=== PATIENT | male | born 1970 | race Two or more races ===

== ENCOUNTER 2024-05-12 06:03 | Inpatient (IN) | payer OTHER ==
[~2024-05-12] VITALS: Ht 152.4 cm; Wt 90.9 kg
[2024-05-12] VITALS (12 sets, daily range): BP systolic 96–160; BP diastolic 68–103; PULSE 101–119; RESP 24–36; TEMP 101.4–102; O2SAT 95–100
[2024-05-12] MEDS: AMIODARONE BOLUS KIT 100 ML IV ONE ×2 (06:32)
[2024-05-12] MEDS: NITROGLYCERIN 2% OINT 1GM PKG TD STA (06:36)
[2024-05-12] MEDS: ASPirin 81 mg TAB PO ONE (06:37)
[2024-05-12 06:51] LABS: Basophils # (auto) 0 10 ^3/uL (0-0.2); Basophils % (auto) 0.1 % (0.0-2.0); Eosinophils # (auto) 0.1 10 ^3/uL (0-0.8); Eosinophils % (auto) 0.6 % (0.0-7.0); Hematocrit 45.1 % (41.0-53.0); Hemoglobin 14.9 g/dL (13.5-17.5); Lymphocytes # (auto) 0.7 10 ^3/uL (0.4-5.4); Lymphocytes % (auto) 3.1 % (10.0-50.0); Mean Corpuscular Hemoglobin 28.6 pg (28.0-32.0); Mean Corpuscular Hgb Conc. 33.1 g/dL (32.0-36.0); Mean Corpuscular Volume 86.5 fL (80.0-100.0); Monocytes % (auto) 4.3 % (0.0-12.0); Neutrophils # (auto) 20.7 10 ^3/uL (1.6-8.6); Neutrophils % (auto) 91.9 % (37.0-80.0); Red Blood Cells 5.22 10^6/uL (4.5-5.90); Red Cell Distribution Width 13.8 % (11.8-14.3); White Blood Cell 22.5 10^3/uL (4.4-10.8)
[2024-05-12 07:05] LABS: INR 1.1 (0.9-1.15); Partial Thromboplastin Time 27.9 SEC (24.5-34.5); Prothrombin Time 11.6 sec (9.3-11.8)
[2024-05-12 07:07] LABS: Alanine Aminotransferase 18 U/L (7-40); Albumin 3.9 g/dL (3.2-4.8); Alkaline Phosphatase 139 U/L (46-116); Anion Gap 16 (5-15); Aspartate Aminotransferase 11 U/L (13-40); BUN/Creatinine Ratio 16.7 (10.0-20.0); Blood Urea Nitrogen 16 mg/dL (9-23); Calcium 10.3 mg/dL (8.7-10.4); Carbon Dioxide 17 mmol/L (20-30); Chloride 97 mmol/L (98-107); Potassium 4.3 mmol/L (3.5-5.1); Sodium 130 mmol/L (136-145); Total Protein 7.3 g/dL (5.7-8.2)
[2024-05-12 07:35] LABS: Glucose 421 mg/dL (74-106)
[2024-05-12] MEDS: AMIODARONE 450mg/250ml AE 250 ML IV SCH ×2 (07:45→13:00)
[2024-05-12] MEDS: ACETAMINOPHEN 325 MG TAB PO ONE (07:55)
[2024-05-12] MEDS: LACTATED RINGER'S 1,000 ML IV ONE (08:00)
[2024-05-12 08:19] LABS: Base Excess -8.7 mmol/L (-2.0-2.0)
[2024-05-12] MEDS: MORPHINE SULFATE INJ 2 MG/ml SYRG IV ONE ×2 (08:24→11:19)
[2024-05-12] MEDS: ONDANSETRON HCL 4 MG/2 ML VIAL IV ONE (08:24)
[2024-05-12] MEDS: InsuLIN REG 1unit/0.01ml Soln (100units/ml) IV ONE (08:44)
[2024-05-12 08:54] LABS: Magnesium 2.1 mg/dL (1.6-2.6)
[2024-05-12] MEDS: SODIUM CHLORIDE 0.9% 1,000 ML IV SCH ×3 (09:20→19:30)
[2024-05-12] MEDS: INSULIN DRIP 100 UNIT/100ML 100 ML IV SCH ×2 (09:20→12:48)
[2024-05-12] MEDS: SODIUM CHLORIDE 0.9% 1,000 ML IV ONE (11:19)
[2024-05-12] MEDS ORDERED: NITROGLYCERIN 0.4 MG SL TAB SL PRN ×2 (11:30)
[2024-05-12] MEDS ORDERED: ACETAMINOPHEN 325 MG TAB PO PRN (11:30)
[2024-05-12] MEDS ORDERED: MORPHINE SULFATE 4 MG/ML SYR/VIAL IV PRN (11:30)
[2024-05-12] MEDS ORDERED: DEXTROSE (50%) 50ML SYRG IV PRN (11:30)
[2024-05-12] MEDS: IOHEXOL 350 MG/ML 100ML IJ ONE (11:52)
[2024-05-12 12:13] LABS: Potassium 3.4 mmol/L (3.5-5.1); Sodium 137 mmol/L (136-145)
[2024-05-12 12:14] LABS: Anion Gap 11 (5-15); Carbon Dioxide 19 mmol/L (20-30)
[2024-05-12 12:19] LABS: BUN/Creatinine Ratio 30.6 (10.0-20.0); Blood Urea Nitrogen 19 mg/dL (9-23); Lipase 16 U/L (12-53)
[2024-05-12 12:21] LABS: Phosphorus 2.3 mg/dL (2.4-5.1)
[2024-05-12 12:29] LABS: Chloride 107 mmol/L (98-107); Glucose 278 mg/dL (74-106)
[2024-05-12 12:40] LABS: Lactic Acid w/Reflex 2.8 mmol/L (0.4-2.0)
[2024-05-12] MEDS: ACCU-CHEK COMFORT CURVE STRIP VI SCH (12:48)
[2024-05-12] MEDS: INSULIN LANTUS (GLARGINE) 1 /0.01ml (100units/ml) SC ONE (13:03)
[2024-05-12] MEDS: MORPHINE SULFATE INJ 2 MG/ml SYRG IV PRN (15:23)
[2024-05-12] MEDS: ONDANSETRON HCL 4 MG/2 ML VIAL IV PRN (15:23)
[2024-05-12 15:45] LABS: Urine Bacteria None Seen /hpf (None Seen)
[2024-05-12] MEDS: PIPERACILLIN-TAZOB 3.375GM 100 ML IV ONE (15:53)
[2024-05-12 16:09] LABS: Urine Blood Negative /uL (Negative); Urine Clarity Clear (Clear); Urine Color Light-Yellow (Yellow); Urine Protein, UAD 1+ (Negative); Urine Specific Gravity 1.039 (1.001-1.035); Urine Urobilinogen Normal (Negative); Urine WBC <1 /hpf (0 - 3); Urine pH 5.5 (5.0-9.0)
[2024-05-12 16:20] LABS: Amphetamine Screen, Urine Neg (NEGATIVE); Barbiturate Scree,Urine Neg (NEGATIVE); Benzodiazephine Screen, Urine Neg (NEGATIVE); Cocaine Screen, Urine Neg (NEGATIVE); Opiate Scree,Urine Neg (NEGATIVE)
[2024-05-12 16:22] LABS: Cannabinoid Screen, Urine Neg (NEGATIVE); Phencyclidine Screen, Urine Neg (NEGATIVE)
[2024-05-12] MEDS: MIDAZOLAM HCL 5 MG/ML-1ML VIAL IV ONE (17:18)
[2024-05-12] MEDS: LIDOCAINE HCL 100 MG/5ML (2%) SYRG INJ IV ONE (17:22)
[2024-05-12] MEDS: MIDAZOLAM HCL 5 MG/ML-1ML VIAL ONE (17:34)
[2024-05-12] MEDS: POTASSIUM CHL 20MEQ/100ML 100 ML IV SCH ×2 (17:58→18:11)
[2024-05-12] MEDS: POTASSIUM CHL 20MEQ/100ML 100 ML IV ONE (17:59)
[2024-05-12] MEDS ORDERED: PIPERACILLIN-TAZOB 3.375GM 100 ML IV SCH (18:00)
[2024-05-12] MEDS: METOPROLOL TARTRATE 1MG/1ML-5ML VIAL IV ONE (18:11)
[2024-05-12] MEDS: LIDOCAINE 4MG/ML IV SOLN 500 ML IV SCH (18:19)
[2024-05-12] MEDS: SUCCINYLCHOLINE CHLORIDE 20 MG/ML 10ML VIAL IV ONE ×2 (18:23→18:27)
[2024-05-12] MEDS: ETOMIDATE (2MG/ML) 20ML VIAL IV ONE ×2 (18:23→18:27)
[2024-05-12] MEDS: PROPOFOL 100 ML IV ONE (18:39)
[2024-05-12] MEDS: PROPOFOL 100 ML IV SCH (18:42)
[2024-05-12] MEDS ORDERED: VANCOMYCIN PER PHARMACY 0 MG IV SCH (18:45)
[2024-05-12] MEDS ORDERED: hydrALAZINE HCL 20 MG/ML VL IV PRN (19:00)
[2024-05-12 19:12] LABS: Chloride 107 mmol/L (98-107); Potassium 3.5 mmol/L (3.5-5.1); Sodium 136 mmol/L (136-145)
[2024-05-12 19:13] LABS: Anion Gap 8 (5-15); Carbon Dioxide 21 mmol/L (20-30)
[2024-05-12 19:14] LABS: Calcium 9.3 mg/dL (8.5-10.1)
[2024-05-12 19:18] LABS: BUN/Creatinine Ratio 23.8 (10.0-20.0); Blood Urea Nitrogen 15 mg/dL (9-23); Glucose 248 mg/dL (74-106)
[2024-05-12 19:56] LABS: Base Excess -5.7 mmol/L (-2.0-2.0)
[2024-05-12] MEDS: ACETAMINOPHEN 650 mg PER 20.3 mL UD GT PRN (20:01)
[2024-05-12 20:10] LABS: Triglycerides 110 mg/dL (< 150)
[2024-05-12 20:11] LABS: LDL Cholesterol 37 mg/dL (< 100)
[2024-05-12 20:12] LABS: Cholesterol 95 mg/dL (< 200); HDL Cholesterol 33 mg/dL (40-59)
[2024-05-12 20:49] LABS: Lactic Acid w/Reflex 2.3 mmol/L (0.4-2.0)
[2024-05-12] MEDS: VANCOMYCIN 1GM/200ML 200 ML IV ONE (21:33)
[2024-05-12] MEDS ORDERED: ATORVASTATIN 20 MG TAB PO SCH (22:00)
[2024-05-12 23:32] LABS: Chloride 109 mmol/L (98-107); Potassium 3.7 mmol/L (3.5-5.1); Sodium 136 mmol/L (136-145)
[2024-05-12 23:33] LABS: Anion Gap 7 (5-15); Carbon Dioxide 20 mmol/L (20-30)
[2024-05-12 23:38] LABS: BUN/Creatinine Ratio 22.4 (10.0-20.0); Blood Urea Nitrogen 15 mg/dL (9-23); Glucose 198 mg/dL (74-106)
[2024-05-13] VITALS (118 sets, daily range): BP systolic 84–123; BP diastolic 54–91; PULSE 78–108; RESP 16–34; TEMP 98.6–102; O2SAT 94–100
[2024-05-13] MEDS: IBUPROFEN 100MG/5ML ORAL SUSP 100 MG/5 ML UD GT PRN (00:17)
[2024-05-13] MEDS: PIPERACILLIN-TAZOB 3.375GM 100 ML IV SCH ×2 (00:58→21:16)
[2024-05-13] MEDS: MIDAZOLAM DRIP 50 mg/50mL 50 ML IV SCH (02:15)
[2024-05-13 04:28] LABS: Chloride 108 mmol/L (98-107); Potassium 3.8 mmol/L (3.5-5.1); Sodium 136 mmol/L (136-145)
[2024-05-13 04:29] LABS: Anion Gap 6 (5-15); Carbon Dioxide 22 mmol/L (20-30)
[2024-05-13 04:34] LABS: BUN/Creatinine Ratio 28.1 (10.0-20.0); Blood Urea Nitrogen 18 mg/dL (9-23); Glucose 228 mg/dL (74-106)
[2024-05-13 04:51] LABS: Triglycerides 91 mg/dL (< 150)
[2024-05-13 05:02] LABS: Cholesterol 77 mg/dL (< 200); HDL Cholesterol 30 mg/dL (40-59); LDL Cholesterol 27 mg/dL (< 100)
[2024-05-13] MEDS: ENOXAPARIN SOD 80 MG/0.8ML SYRINGE SC SCH (08:00)
[2024-05-13] MEDS ORDERED: DEXTROSE (50%) 50ML SYRG IV PRN (08:30)
[2024-05-13] MEDS: NOREPINEPHRINE 8 MG/250ML KIT 250 ML IV SCH (09:23)
[2024-05-13] MEDS: POTASSIUM CHL 20MEQ/100ML 100 ML IV SCH (09:32)
[2024-05-13 09:33] LABS: Basophils # (auto) 0 10 ^3/uL (0-0.2); Eosinophils # (auto) 0 10 ^3/uL (0-0.8); Eosinophils % (auto) 0.2 % (0.0-7.0); Hematocrit 38.1 % (41.0-53.0); Lymphocytes # (auto) 0.6 10 ^3/uL (0.4-5.4); Lymphocytes % (auto) 6.4 % (10.0-50.0); Mean Corpuscular Hemoglobin 29.4 pg (28.0-32.0); Mean Corpuscular Hgb Conc. 34.1 g/dL (32.0-36.0); Mean Corpuscular Volume 86.1 fL (80.0-100.0); Monocytes # (auto) 0.6 10 ^3/uL (0-1.3); Monocytes % (auto) 6.3 % (0.0-12.0); Neutrophils # (auto) 8.1 10 ^3/uL (1.6-8.6); Neutrophils % (auto) 87.1 % (37.0-80.0); Nucleated Red Blood Cells % 0.5 %; Red Blood Cells 4.42 10^6/uL (4.5-5.90); Red Cell Distribution Width 13.9 % (11.8-14.3); White Blood Cell 9.3 10^3/uL (4.4-10.8)
[2024-05-13] MEDS: DOCUSATE SOD 100 MG CAP PO SCH (10:00)
[2024-05-13] MEDS ORDERED: INSULIN LANTUS (GLARGINE) 1 /0.01ml (100units/ml) SC SCH (10:00)
[2024-05-13] MEDS: ACCU-CHEK COMFORT CURVE STRIP VI SCH ×3 (11:29→20:00)
[2024-05-13] MEDS: InsuLIN REG 1unit/0.01ml Soln (100units/ml) SC SCH ×3 (11:34→20:00)
[2024-05-13 11:36] LABS: Base Excess -6.6 mmol/L (-2.0-2.0)
[2024-05-13] MEDS: HEPARIN SODIUM (PORCINE) 5000 UNITS/ML 1ML VIAL ONE (12:13)
[2024-05-13] MEDS: VERAPAMIL 2.5MG/ML INJ 2ML VIAL IV ONE (12:13)
[2024-05-13] MEDS: ANGIOMAX 250 MG VIAL IV ONE (12:13)
[2024-05-13] MEDS: LIDOCAINE 2%HCL (LOCAL ANESTH.) INJ 20ML MDV ONE (12:14)
[2024-05-13] MEDS: SODIUM CHL 0.9% 0 ML ONE (12:14)
[2024-05-13] MEDS: IODIXANOL 320MG/ML 100ML BTL IV ONE (12:27)
[2024-05-13] MEDS: ASPirin 81 mg TAB PO SCH (13:00)
[2024-05-13] MEDS: VANCOMYCIN 1GM/200ML 200 ML IV ONE (13:00)
[2024-05-13] MEDS ORDERED: ACCU-CHEK COMFORT CURVE STRIP VI SCH (14:00)
[2024-05-13] MEDS ORDERED: VANCOMYCIN 1GM/200ML 200 ML IV SCH (14:00)
[2024-05-13] MEDS ORDERED: InsuLIN REG 1unit/0.01ml Soln (100units/ml) SC SCH (14:00)
[2024-05-13] MEDS: SODIUM CHLORIDE 0.9% 1,000 ML IV SCH ×2 (14:18→17:15)
[2024-05-13] MEDS: ENOXAPARIN SOD 30 MG/0.3 ML SYRINGE SC ONE (14:44)
[2024-05-13] MEDS: INSULIN LANTUS (GLARGINE) 1 /0.01ml (100units/ml) SC ONE (14:46)
[2024-05-13 19:06] LABS: Urine Bacteria None Seen /hpf (None Seen); Urine Blood 1+ /uL (Negative); Urine Clarity Clear (Clear); Urine Color Yellow (Yellow); Urine Protein, UAD 1+ (Negative); Urine Urobilinogen 3 mg/dL (Negative); Urine WBC 5 /hpf (0 - 3); Urine pH 6.5 (5.0-9.0)
[2024-05-13 19:07] LABS: Urine Specific Gravity > 1.050 (1.001-1.035)
[2024-05-13] MEDS: PANTOPRAZOLE 40 MG/10 ML VIAL INJ IV ONE (21:16)
[2024-05-13] MEDS: POTASSIUM CHL 20MEQ/100ML 100 ML IV ONE (21:43)
[2024-05-13] MEDS: VANCOMYCIN 1GM/200ML 200 ML IV SCH (23:19)
[2024-05-13] MEDS: fentaNYL Drip 2500mCg/250mlNS 250 ML IV SCH (23:30)
[2024-05-14] VITALS (109 sets, daily range): BP systolic 95–135; BP diastolic 42–92; PULSE 78–96; RESP 16–31; TEMP 98.9–101.3; O2SAT 95–99
[2024-05-14 03:35] LABS: Basophils # (auto) 0 10 ^3/uL (0-0.2); Basophils % (auto) 0.2 % (0.0-2.0); Eosinophils # (auto) 0 10 ^3/uL (0-0.8); Eosinophils % (auto) 0.2 % (0.0-7.0); Hemoglobin 12.5 g/dL (13.5-17.5); Lymphocytes % (auto) 8.6 % (10.0-50.0); Mean Corpuscular Hemoglobin 28.9 pg (28.0-32.0); Mean Corpuscular Hgb Conc. 33.7 g/dL (32.0-36.0); Mean Corpuscular Volume 85.9 fL (80.0-100.0); Monocytes # (auto) 0.6 10 ^3/uL (0-1.3); Monocytes % (auto) 5.4 % (0.0-12.0); Neutrophils # (auto) 9.6 10 ^3/uL (1.6-8.6); Neutrophils % (auto) 85.6 % (37.0-80.0); Nucleated Red Blood Cells % 0.4 %; Red Cell Distribution Width 14.2 % (11.8-14.3); White Blood Cell 11.2 10^3/uL (4.4-10.8)
[2024-05-14 03:54] LABS: Alanine Aminotransferase 18 U/L (7-40); Albumin 3.1 g/dL (3.2-4.8); Alkaline Phosphatase 166 U/L (46-116); Anion Gap 8 (5-15); Aspartate Aminotransferase 22 U/L (13-40); BUN/Creatinine Ratio 31.6 (10.0-20.0); Bilirubin, Total 0.5 mg/dL (0.2-1.0); Blood Urea Nitrogen 18 mg/dL (9-23); Calcium 8.9 mg/dL (8.7-10.4); Carbon Dioxide 19 mmol/L (20-30); Chloride 111 mmol/L (98-107); Glucose 186 mg/dL (74-106); Magnesium 2.2 mg/dL (1.6-2.6); Potassium 3.9 mmol/L (3.5-5.1); Sodium 138 mmol/L (136-145)
[2024-05-14 03:55] LABS: Total Protein 5.7 g/dL (5.7-8.2)
[2024-05-14] MEDS: INSULIN LANTUS (GLARGINE) 1 /0.01ml (100units/ml) SC SCH (05:45)
[2024-05-14 07:14] LABS: Base Excess -5.5 mmol/L (-2.0-2.0)
[2024-05-14] MEDS: PANTOPRAZOLE 40 MG/10 ML VIAL INJ IV SCH (11:28)
[2024-05-14] MEDS: ENOXAPARIN SOD 40 MG/0.4 ML SYRINGE SC SCH (11:29)
[2024-05-14] MEDS: DOCUSATE ORAL LIQUID 100 MG/10 ML UD GT SCH (11:29)
[2024-05-14] MEDS ORDERED: LIDOCAINE HCL 100 MG/5ML (2%) SYRG INJ IV ONE (12:22)
[2024-05-14] MEDS ORDERED: FLECAINIDE ACETATE 50 MG TAB PO ONE (12:30)
[2024-05-14] MEDS ORDERED: AMIODARONE HCL 200 MG TAB PO ONE (14:45)
[2024-05-14] MEDS: AMIODARONE HCL 200 MG TAB PO ONE (14:49)
[2024-05-14] MEDS ORDERED: Glucerna 1.2 Cal 1Liter BOTTLE GT SCH (18:00)
[2024-05-14] MEDS: AMIODARONE HCL 200 MG TAB PO SCH (21:06)
[2024-05-14] MEDS ORDERED: FLECAINIDE ACETATE 50 MG TAB PO SCH (22:00)
[2024-05-15] VITALS (114 sets, daily range): BP systolic 86–115; BP diastolic 59–81; PULSE 70–97; RESP 6–23; TEMP 70.5–100.2; O2SAT 93–100
[2024-05-15 04:06] LABS: Basophils # (auto) 0 10 ^3/uL (0-0.2); Basophils % (auto) 0.1 % (0.0-2.0); Eosinophils # (auto) 0 10 ^3/uL (0-0.8); Eosinophils % (auto) 0.3 % (0.0-7.0); Hematocrit 37.6 % (41.0-53.0); Hemoglobin 12.6 g/dL (13.5-17.5); Lymphocytes # (auto) 0.9 10 ^3/uL (0.4-5.4); Lymphocytes % (auto) 6.2 % (10.0-50.0); Mean Corpuscular Hemoglobin 28.9 pg (28.0-32.0); Mean Corpuscular Hgb Conc. 33.6 g/dL (32.0-36.0); Mean Corpuscular Volume 86.1 fL (80.0-100.0); Monocytes # (auto) 0.8 10 ^3/uL (0-1.3); Monocytes % (auto) 5.6 % (0.0-12.0); Neutrophils % (auto) 87.8 % (37.0-80.0); Nucleated Red Blood Cells % 0.2 %; Red Blood Cells 4.37 10^6/uL (4.5-5.90); Red Cell Distribution Width 14.5 % (11.8-14.3); White Blood Cell 13.6 10^3/uL (4.4-10.8)
[2024-05-15 04:20] LABS: Alanine Aminotransferase 18 U/L (7-40); Alkaline Phosphatase 244 U/L (46-116); Anion Gap 7 (5-15); Aspartate Aminotransferase 23 U/L (13-40); BUN/Creatinine Ratio 34.8 (10.0-20.0); Bilirubin, Total 0.6 mg/dL (0.2-1.0); Blood Urea Nitrogen 16 mg/dL (9-23); Calcium 8.8 mg/dL (8.7-10.4); Carbon Dioxide 21 mmol/L (20-30); Chloride 111 mmol/L (98-107); Glucose 159 mg/dL (74-106); Magnesium 2.1 mg/dL (1.6-2.6); Potassium 3.9 mmol/L (3.5-5.1); Sodium 139 mmol/L (136-145); Total Protein 5.8 g/dL (5.7-8.2)
[2024-05-15 07:40] LABS: Base Excess -6.1 mmol/L (-2.0-2.0)
[2024-05-15] MEDS ORDERED: LIDOCAINE 2%HCL (LOCAL ANESTH.) INJ 20ML MDV ONE (11:27)
[2024-05-15] MEDS ORDERED: LIDOCAINE 2% JELLY 11ml (GLYDO) ONE (11:27)
[2024-05-15] MEDS ORDERED: MIDAZOLAM HCL 5 MG/ML-1ML VIAL ONE (11:27)
[2024-05-15] MEDS ORDERED: EPINEPHrine HCL 1 MG/1 ML AMP ONE (11:27)
[2024-05-15] MEDS ORDERED: fentaNYL CITRATE 100 MCG/2 ML VL ONE (11:28)
[2024-05-15] MEDS ORDERED: NALOXONE HCL 0.4 MG/ML VIAL ONE (11:28)
[2024-05-15] MEDS ORDERED: FLUMAZENIL 0.1 MG/ML INJ 10ML MDV IV ONE (11:28)
[2024-05-15] MEDS: VANCOMYCIN 1GM/200ML 200 ML IV SCH (14:16)
[2024-05-15] MEDS: MICAFUNGIN SODIUM 100 MG in SODIUM CHL 0.9% 100 ML IV ONE (19:00)
[2024-05-16] VITALS (113 sets, daily range): BP systolic 89–168; BP diastolic 37–105; PULSE 67–120; RESP 14–30; TEMP 98.8–100.6; O2SAT 94–100
[2024-05-16 03:42] LABS: Basophils # (auto) 0 10 ^3/uL (0-0.2); Basophils % (auto) 0.1 % (0.0-2.0); Eosinophils # (auto) 0.2 10 ^3/uL (0-0.8); Eosinophils % (auto) 1.1 % (0.0-7.0); Hematocrit 36.5 % (41.0-53.0); Hemoglobin 12.2 g/dL (13.5-17.5); Lymphocytes # (auto) 0.9 10 ^3/uL (0.4-5.4); Lymphocytes % (auto) 6.4 % (10.0-50.0); Mean Corpuscular Hemoglobin 28.8 pg (28.0-32.0); Mean Corpuscular Hgb Conc. 33.4 g/dL (32.0-36.0); Monocytes # (auto) 0.9 10 ^3/uL (0-1.3); Monocytes % (auto) 5.8 % (0.0-12.0); Neutrophils # (auto) 12.9 10 ^3/uL (1.6-8.6); Neutrophils % (auto) 86.6 % (37.0-80.0); Nucleated Red Blood Cells % 0.1 %; Red Blood Cells 4.24 10^6/uL (4.5-5.90); Red Cell Distribution Width 14.4 % (11.8-14.3); White Blood Cell 14.8 10^3/uL (4.4-10.8)
[2024-05-16 03:53] LABS: Chloride 110 mmol/L (98-107); Potassium 3.8 mmol/L (3.5-5.1); Sodium 140 mmol/L (136-145)
[2024-05-16 03:54] LABS: Anion Gap 5 (5-15); Calcium 8.5 mg/dL (8.5-10.1); Carbon Dioxide 25 mmol/L (20-30)
[2024-05-16 03:59] LABS: BUN/Creatinine Ratio 39.5 (10.0-20.0); Blood Urea Nitrogen 17 mg/dL (9-23); Glucose 169 mg/dL (74-106)
[2024-05-16 04:00] LABS: Magnesium 1.9 mg/dL (1.6-2.6)
[2024-05-16 07:34] LABS: Base Excess -1.9 mmol/L (-2.0-2.0)
[2024-05-16] MEDS: MICAFUNGIN SODIUM 100 MG in SODIUM CHL 0.9% 100 ML IV SCH (10:01)
[2024-05-16] MEDS: MAGNESIUM SULFATE 1GM/100ML 100 ML IV ONE (10:27)
[2024-05-16] MEDS: POTASSIUM CHL 20MEQ/100ML 100 ML IV ONE (10:27)
[2024-05-16] MEDS: LIDOCAINE 4MG/ML IV SOLN 500 ML IV SCH (10:52)
[2024-05-16] MEDS: METOPROLOL TARTRATE 25 MG TAB PO ONE (13:30)
[2024-05-16 14:13] LABS: Urine Bacteria None Seen /hpf (None Seen)
[2024-05-16 14:28] LABS: Urine Amorphous Crystal MOD /hpf (None Seen); Urine Blood 3+ /uL (Negative); Urine Color Yellow (Yellow); Urine Protein, UAD 1+ (Negative); Urine Specific Gravity 1.042 (1.001-1.035); Urine Urobilinogen 6 mg/dL (Negative); Urine WBC 5 /hpf (0 - 3); Urine pH 6.5 (5.0-9.0)
[2024-05-16 14:30] LABS: Urine Clarity Cloudy (Clear)
[2024-05-16] MEDS: METOPROLOL TARTRATE 25 MG TAB PO SCH (17:26)
[2024-05-16] MEDS: VANCOMYCIN 1GM/200ML 200 ML IV SCH (19:31)
[2024-05-16] MEDS ORDERED: METOPROLOL TARTRATE 1MG/1ML-5ML VIAL IV PRN (23:45)
[2024-05-17] VITALS (116 sets, daily range): BP systolic 90–160; BP diastolic 58–122; PULSE 70–98; RESP 14–28; TEMP 98.4–100.4; O2SAT 88–100
[2024-05-17 04:15] LABS: Basophils # (auto) 0 10 ^3/uL (0-0.2); Basophils % (auto) 0.2 % (0.0-2.0); Eosinophils # (auto) 0.2 10 ^3/uL (0-0.8); Eosinophils % (auto) 1.8 % (0.0-7.0); Hematocrit 36.9 % (41.0-53.0); Hemoglobin 12.3 g/dL (13.5-17.5); Lymphocytes # (auto) 1.1 10 ^3/uL (0.4-5.4); Lymphocytes % (auto) 8.3 % (10.0-50.0); Mean Corpuscular Hemoglobin 28.8 pg (28.0-32.0); Mean Corpuscular Hgb Conc. 33.3 g/dL (32.0-36.0); Mean Corpuscular Volume 86.4 fL (80.0-100.0); Monocytes # (auto) 0.7 10 ^3/uL (0-1.3); Monocytes % (auto) 5.4 % (0.0-12.0); Neutrophils # (auto) 11.3 10 ^3/uL (1.6-8.6); Neutrophils % (auto) 84.3 % (37.0-80.0); Red Blood Cells 4.27 10^6/uL (4.5-5.90); Red Cell Distribution Width 14.4 % (11.8-14.3); White Blood Cell 13.4 10^3/uL (4.4-10.8)
[2024-05-17 04:35] LABS: Alanine Aminotransferase 15 U/L (7-40); Albumin 2.8 g/dL (3.2-4.8); Alkaline Phosphatase 366 U/L (46-116); Anion Gap 8 (5-15); Aspartate Aminotransferase 13 U/L (13-40); BUN/Creatinine Ratio 31.8 (10.0-20.0); Blood Urea Nitrogen 14 mg/dL (9-23); Calcium 8.4 mg/dL (8.5-10.1); Carbon Dioxide 25 mmol/L (20-30); Chloride 108 mmol/L (98-107); Glucose 189 mg/dL (74-106); Magnesium 1.9 mg/dL (1.6-2.6); Potassium 3.4 mmol/L (3.5-5.1); Sodium 141 mmol/L (136-145)
[2024-05-17 04:36] LABS: Bilirubin, Total 0.6 mg/dL (0.2-1.0); Total Protein 5.4 g/dL (5.7-8.2)
[2024-05-17] MEDS: POTASSIUM CHL 20MEQ/100ML 100 ML IV SCH ×2 (05:17→17:11)
[2024-05-17] MEDS: MAGNESIUM SULFATE 1GM/100ML 100 ML IV SCH (05:17)
[2024-05-17] MEDS: POTASSIUM CHL 20MEQ/100ML 100 ML IV ONE (05:57)
[2024-05-17 11:13] LABS: Urine Bacteria None Seen /hpf (None Seen)
[2024-05-17 11:41] LABS: Urine Amorphous Crystal FEW /hpf (None Seen); Urine Blood 3+ /uL (Negative); Urine Clarity Hazy (Clear); Urine Color Yellow (Yellow); Urine Protein, UAD TRACE (Negative); Urine Urobilinogen 4 mg/dL (Negative); Urine WBC 2 /hpf (0 - 3)
[2024-05-17 15:24] LABS: Potassium 3.7 mmol/L (3.5-5.1)
[2024-05-17] MEDS: ALBUTEROL SULF 2.5 MG/0.5ML(0.5%) NEB SOLN ONE (17:57)
[2024-05-17] MEDS: METOPROLOL TARTRATE 25 MG TAB PO SCH (18:34)
[2024-05-18] VITALS (114 sets, daily range): BP systolic 93–148; BP diastolic 61–108; PULSE 58–86; RESP 17–27; TEMP 98.1–100.2; O2SAT 93–100
[2024-05-18 04:16] LABS: Basophils # (auto) 0 10 ^3/uL (0-0.2); Basophils % (auto) 0.2 % (0.0-2.0); Eosinophils # (auto) 0.4 10 ^3/uL (0-0.8); Eosinophils % (auto) 3.1 % (0.0-7.0); Hematocrit 35.9 % (41.0-53.0); Hemoglobin 11.8 g/dL (13.5-17.5); Lymphocytes # (auto) 1.2 10 ^3/uL (0.4-5.4); Lymphocytes % (auto) 8.9 % (10.0-50.0); Mean Corpuscular Hemoglobin 28.4 pg (28.0-32.0); Mean Corpuscular Hgb Conc. 32.9 g/dL (32.0-36.0); Mean Corpuscular Volume 86.3 fL (80.0-100.0); Monocytes # (auto) 0.8 10 ^3/uL (0-1.3); Neutrophils # (auto) 10.6 10 ^3/uL (1.6-8.6); Neutrophils % (auto) 81.8 % (37.0-80.0); Red Blood Cells 4.16 10^6/uL (4.5-5.90); Red Cell Distribution Width 14.2 % (11.8-14.3); White Blood Cell 12.9 10^3/uL (4.4-10.8)
[2024-05-18 04:23] LABS: Anion Gap 5 (5-15); Carbon Dioxide 27 mmol/L (20-30); Chloride 107 mmol/L (98-107); Potassium 3.7 mmol/L (3.5-5.1); Sodium 139 mmol/L (136-145)
[2024-05-18 04:25] LABS: Calcium 8.5 mg/dL (8.7-10.4)
[2024-05-18 04:29] LABS: BUN/Creatinine Ratio 28.2 (10.0-20.0); Blood Urea Nitrogen 11 mg/dL (9-23); Glucose 128 mg/dL (74-106)
[2024-05-18] MEDS: POTASSIUM CHL 20MEQ/100ML 100 ML IV ONE (06:24)
[2024-05-18 07:07] LABS: Base Excess 0.8 mmol/L (-2.0-2.0)
[2024-05-18] MEDS: METOCLOPRAMIDE HCL 5MG/ml INJ 2ml VIAL IV ONE (12:28)
[2024-05-18 13:01] LABS: Magnesium 1.9 mg/dL (1.6-2.6)
[2024-05-18] MEDS: MAGNESIUM SULFATE 1GM/100ML 100 ML IV SCH ×2 (16:00→16:16)
[2024-05-18 16:13] LABS: INR 1.14 (0.9-1.15)
[2024-05-18] MEDS: METOCLOPRAMIDE HCL 5MG/ml INJ 2ml VIAL IV SCH (22:10)
[2024-05-19] VITALS (108 sets, daily range): BP systolic 86–155; BP diastolic 53–101; PULSE 61–91; RESP 13–28; TEMP 98.8–100.2; O2SAT 94–100
[2024-05-19] MEDS: SODIUM CHLORIDE 0.9% 1,000 ML IV SCH (00:01)
[2024-05-19 04:47] LABS: Basophils # (auto) 0.1 10 ^3/uL (0-0.2); Basophils % (auto) 0.4 % (0.0-2.0); Eosinophils # (auto) 0.3 10 ^3/uL (0-0.8); Eosinophils % (auto) 2.2 % (0.0-7.0); Hematocrit 38.2 % (41.0-53.0); Hemoglobin 12.5 g/dL (13.5-17.5); Lymphocytes # (auto) 1.5 10 ^3/uL (0.4-5.4); Lymphocytes % (auto) 10.1 % (10.0-50.0); Mean Corpuscular Hemoglobin 28.4 pg (28.0-32.0); Mean Corpuscular Hgb Conc. 32.6 g/dL (32.0-36.0); Mean Corpuscular Volume 87.1 fL (80.0-100.0); Monocytes % (auto) 6.9 % (0.0-12.0); Neutrophils # (auto) 11.8 10 ^3/uL (1.6-8.6); Neutrophils % (auto) 80.4 % (37.0-80.0); Red Blood Cells 4.38 10^6/uL (4.5-5.90); Red Cell Distribution Width 14.2 % (11.8-14.3); White Blood Cell 14.6 10^3/uL (4.4-10.8)
[2024-05-19 04:56] LABS: Chloride 104 mmol/L (98-107); Potassium 4.3 mmol/L (3.5-5.1); Sodium 135 mmol/L (136-145)
[2024-05-19 04:57] LABS: Anion Gap 5 (5-15); Calcium 8.2 mg/dL (8.7-10.4); Carbon Dioxide 26 mmol/L (20-30)
[2024-05-19 05:02] LABS: Blood Urea Nitrogen 8 mg/dL (9-23); Glucose 172 mg/dL (74-106)
[2024-05-19 06:52] LABS: Base Excess -0.4 mmol/L (-2.0-2.0)
[2024-05-19] MEDS: METOCLOPRAMIDE HCL 5MG/ml INJ 2ml VIAL IV SCH (14:09)
[2024-05-19] MEDS: IOHEXOL 350 MG/ML 100ML IJ ONE (15:15)
[2024-05-19] MEDS: LIDOCAINE 2%HCL (LOCAL ANESTH.) INJ 20ML MDV ONE (15:15)
[2024-05-19] MEDS: VANCOMYCIN HCL 1000 MG VL ONE (15:41)
[2024-05-19] MEDS: VANCOMYCIN 1GM/200ML 200 ML IV ONE (15:42)
[2024-05-19] MEDS: GELATIN 1 SPONGE SIZE 50 TOP ONE (16:30)
[2024-05-19] MEDS: PROPOFOL 100 ML IV ONE (22:48)
[2024-05-20] VITALS (90 sets, daily range): BP systolic 93–176; BP diastolic 60–102; PULSE 61–96; RESP 13–28; TEMP 97.3–99.9; O2SAT 94–100
[2024-05-20] MEDS: PROPOFOL 100 ML IV SCH (00:27)
[2024-05-20 04:12] LABS: Basophils # (auto) 0 10 ^3/uL (0-0.2); Basophils % (auto) 0.3 % (0.0-2.0); Eosinophils # (auto) 0.2 10 ^3/uL (0-0.8); Eosinophils % (auto) 2.1 % (0.0-7.0); Hematocrit 35.3 % (41.0-53.0); Hemoglobin 11.7 g/dL (13.5-17.5); Lymphocytes # (auto) 0.9 10 ^3/uL (0.4-5.4); Lymphocytes % (auto) 7.7 % (10.0-50.0); Mean Corpuscular Hemoglobin 28.4 pg (28.0-32.0); Mean Corpuscular Hgb Conc. 33.2 g/dL (32.0-36.0); Mean Corpuscular Volume 85.5 fL (80.0-100.0); Monocytes # (auto) 0.6 10 ^3/uL (0-1.3); Monocytes % (auto) 5.4 % (0.0-12.0); Neutrophils % (auto) 84.5 % (37.0-80.0); Nucleated Red Blood Cells % 0.1 %; Red Blood Cells 4.13 10^6/uL (4.5-5.90); Red Cell Distribution Width 13.8 % (11.8-14.3); White Blood Cell 11.8 10^3/uL (4.4-10.8)
[2024-05-20 04:24] LABS: Alanine Aminotransferase 10 U/L (7-40); Albumin 2.5 g/dL (3.2-4.8); Alkaline Phosphatase 295 U/L (46-116); Anion Gap 6 (5-15); Aspartate Aminotransferase 18 U/L (13-40); BUN/Creatinine Ratio 18.9 (10.0-20.0); Bilirubin, Total 1.1 mg/dL (0.2-1.0); Blood Urea Nitrogen 7 mg/dL (9-23); Calcium 8.1 mg/dL (8.5-10.1); Carbon Dioxide 27 mmol/L (20-30); Chloride 104 mmol/L (98-107); Glucose 134 mg/dL (74-106); Potassium 3.6 mmol/L (3.5-5.1); Sodium 137 mmol/L (136-145); Total Protein 5.7 g/dL (5.7-8.2)
[2024-05-20 07:23] LABS: Base Excess 1.7 mmol/L (-2.0-2.0)
[2024-05-20] MEDS: MAGNESIUM OXIDE 400 MG TAB PO SCH (10:20)
[2024-05-20] MEDS: ENOXAPARIN SOD 40 MG/0.4 ML SYRINGE SC SCH (10:21)
[2024-05-20] MEDS: VANCOMYCIN 1GM/200ML 200 ML IV SCH (10:23)
[2024-05-20] MEDS ORDERED: CLINIMIX PER PHARMACY 0 ML IV SCH (11:00)
[2024-05-20 15:47] LABS: Phosphorus 3.6 mg/dL (2.4-5.1)
[2024-05-20 16:04] LABS: Magnesium 1.8 mg/dL (1.6-2.6)
[2024-05-20] MEDS: AMINO ACID INFUSION IN D10W 1,000 ML IV SCH (20:17)
[2024-05-20] MEDS: LIDOCAINE 1% (LOCAL ANESTH.) PF 5ml SDV ID ONE (20:19)
[2024-05-20] MEDS: SODIUM CHLOR 0.9% PF (SALINE LOCK) 10ML VIAL/SYR IV SCH (21:33)
[2024-05-21] VITALS (108 sets, daily range): BP systolic 96–150; BP diastolic 60–94; PULSE 61–101; RESP 15–23; TEMP 98.1–99.7; O2SAT 87–100
[2024-05-21 04:16] LABS: Basophils # (auto) 0 10 ^3/uL (0-0.2); Basophils % (auto) 0.2 % (0.0-2.0); Eosinophils # (auto) 0.2 10 ^3/uL (0-0.8); Eosinophils % (auto) 2.7 % (0.0-7.0); Hematocrit 33.3 % (41.0-53.0); Hemoglobin 11.3 g/dL (13.5-17.5); Lymphocytes # (auto) 0.9 10 ^3/uL (0.4-5.4); Lymphocytes % (auto) 9.7 % (10.0-50.0); Mean Corpuscular Hemoglobin 28.9 pg (28.0-32.0); Mean Corpuscular Hgb Conc. 33.9 g/dL (32.0-36.0); Mean Corpuscular Volume 85.3 fL (80.0-100.0); Monocytes # (auto) 0.6 10 ^3/uL (0-1.3); Monocytes % (auto) 6.2 % (0.0-12.0); Neutrophils # (auto) 7.5 10 ^3/uL (1.6-8.6); Neutrophils % (auto) 81.2 % (37.0-80.0); Red Blood Cells 3.91 10^6/uL (4.5-5.90); Red Cell Distribution Width 13.9 % (11.8-14.3); White Blood Cell 9.2 10^3/uL (4.4-10.8)
[2024-05-21 04:22] LABS: Potassium 3.6 mmol/L (3.5-5.1)
[2024-05-21 04:27] LABS: Albumin 2.4 g/dL (3.2-4.8)
[2024-05-21 04:28] LABS: BUN/Creatinine Ratio 18.9 (10.0-20.0)
[2024-05-21 04:29] LABS: Magnesium 1.9 mg/dL (1.6-2.6)
[2024-05-21 04:30] LABS: Phosphorus 2.9 mg/dL (2.4-5.1)
[2024-05-21] MEDS: MAGNESIUM SULFATE 1GM/100ML 100 ML IV SCH (06:07)
[2024-05-21] MEDS: POTASSIUM CHL 20MEQ/100ML 100 ML IV ONE (06:07)
[2024-05-21 08:09] LABS: Base Excess 4.3 mmol/L (-2.0-2.0)
[2024-05-21] MEDS: VANCOMYCIN 1GM/200ML 200 ML IV SCH (18:24)
[2024-05-22] VITALS (113 sets, daily range): BP systolic 94–154; BP diastolic 58–93; PULSE 60–94; RESP 18–21; TEMP 97.5–99.7; O2SAT 93–100
[2024-05-22 04:13] LABS: Basophils # (auto) 0.1 10 ^3/uL (0-0.2); Eosinophils # (auto) 0.3 10 ^3/uL (0-0.8); Eosinophils % (auto) 3.2 % (0.0-7.0); Hematocrit 31.9 % (41.0-53.0); Hemoglobin 10.7 g/dL (13.5-17.5); Lymphocytes % (auto) 12.4 % (10.0-50.0); Mean Corpuscular Hemoglobin 28.8 pg (28.0-32.0); Mean Corpuscular Hgb Conc. 33.5 g/dL (32.0-36.0); Monocytes # (auto) 0.6 10 ^3/uL (0-1.3); Monocytes % (auto) 8.1 % (0.0-12.0); Neutrophils # (auto) 5.9 10 ^3/uL (1.6-8.6); Neutrophils % (auto) 75.3 % (37.0-80.0); Red Cell Distribution Width 13.8 % (11.8-14.3); White Blood Cell 7.9 10^3/uL (4.4-10.8)
[2024-05-22 04:55] LABS: Alanine Aminotransferase 10 U/L (7-40); Albumin 2.3 g/dL (3.2-4.8); Alkaline Phosphatase 228 U/L (46-116); Anion Gap 4 (5-15); Aspartate Aminotransferase 17 U/L (13-40); BUN/Creatinine Ratio 18.8 (10.0-20.0); Blood Urea Nitrogen 6 mg/dL (9-23); Calcium 8.1 mg/dL (8.7-10.4); Carbon Dioxide 29 mmol/L (20-30); Chloride 105 mmol/L (98-107); GFR African American 372 mL/min; GFR Non-African American 307 mL/min; Glucose 161 mg/dL (74-106); Magnesium 1.8 mg/dL (1.6-2.6); Potassium 3.4 mmol/L (3.5-5.1); Sodium 138 mmol/L (136-145)
[2024-05-22 04:56] LABS: Phosphorus 2.9 mg/dL (2.4-5.1)
[2024-05-22 04:57] LABS: Bilirubin, Total 0.7 mg/dL (0.2-1.0); Total Protein 5.6 g/dL (5.7-8.2)
[2024-05-22] MEDS: MAGNESIUM SULFATE 1GM/100ML 100 ML IV SCH (09:09)
[2024-05-22 09:13] LABS: Base Excess 3.7 mmol/L (-2.0-2.0)
[2024-05-22] MEDS: POTASSIUM CHL 20MEQ/100ML 100 ML IV ONE ×2 (09:36→10:25)
[2024-05-22] MEDS: ALBUTEROL SULF 2.5 MG/0.5ML(0.5%) NEB SOLN NEB PRN (22:22)
[2024-05-22] MEDS: ACETYLCYSTEINE 10 %(100MG/ML) SOL 4ML NEB SCH (22:23)
[2024-05-23] VITALS (87 sets, daily range): BP systolic 92–167; BP diastolic 57–113; PULSE 63–88; RESP 13–28; TEMP 97.9–99.7; O2SAT 95–100
[2024-05-23] MEDS: fentaNYL Drip 2500mCg/250mlNS 250 ML IV SCH (02:30)
[2024-05-23] MEDS ORDERED: fentaNYL Drip 2500mCg/250mlNS 250 ML IV SCH (02:30)
[2024-05-23 04:38] LABS: Basophils # (auto) 0 10 ^3/uL (0-0.2); Basophils % (auto) 0.2 % (0.0-2.0); Eosinophils # (auto) 0.4 10 ^3/uL (0-0.8); Eosinophils % (auto) 3.9 % (0.0-7.0); Hematocrit 35.9 % (41.0-53.0); Lymphocytes # (auto) 1.3 10 ^3/uL (0.4-5.4); Lymphocytes % (auto) 13.5 % (10.0-50.0); Mean Corpuscular Hemoglobin 28.2 pg (28.0-32.0); Mean Corpuscular Hgb Conc. 33.4 g/dL (32.0-36.0); Mean Corpuscular Volume 84.3 fL (80.0-100.0); Monocytes # (auto) 0.7 10 ^3/uL (0-1.3); Monocytes % (auto) 7.8 % (0.0-12.0); Neutrophils # (auto) 6.9 10 ^3/uL (1.6-8.6); Neutrophils % (auto) 74.6 % (37.0-80.0); Nucleated Red Blood Cells % 0.1 %; Red Blood Cells 4.25 10^6/uL (4.5-5.90); White Blood Cell 9.3 10^3/uL (4.4-10.8)
[2024-05-23 04:45] LABS: Albumin 2.6 g/dL (3.2-4.8); Alkaline Phosphatase 231 U/L (46-116); Anion Gap 4 (5-15); Aspartate Aminotransferase 22 U/L (13-40); BUN/Creatinine Ratio 20.6 (10.0-20.0); Blood Urea Nitrogen 7 mg/dL (9-23); Calcium 8.3 mg/dL (8.7-10.4); Carbon Dioxide 28 mmol/L (20-30); Chloride 106 mmol/L (98-107); Glucose 170 mg/dL (74-106); Magnesium 1.8 mg/dL (1.6-2.6); Potassium 4.6 mmol/L (3.5-5.1); Sodium 138 mmol/L (136-145)
[2024-05-23 04:46] LABS: Alanine Aminotransferase 9 U/L (7-40); Bilirubin, Total 0.7 mg/dL (0.2-1.0); Phosphorus 3.5 mg/dL (2.4-5.1); Total Protein 6.3 g/dL (5.7-8.2)
[2024-05-23 08:35] LABS: Base Excess 2.8 mmol/L (-2.0-2.0)
== END 2024-05-23 19:25 | disposition short-term general hospital (02) | DRG 853 ==
LOC: ER 06:03 → TELE 11:28 → ICU WEST 23:10
PROVIDERS: ADMIT Internal Medicine Pulmonary Disease; ATTEND Internal Medicine Geriatric Medicine
PROC: 02HV33Z Insertion of Infusion Device into Superior Vena Cava, Percutaneous Approach (ICD-10-PCS; 2024-05-12)
PROC: 0BH17EZ Insertion of Endotracheal Airway into Trachea, Via Natural or Artificial Opening (ICD-10-PCS; 2024-05-12)
PROC: 5A1955Z Respiratory Ventilation, Greater than 96 Consecutive Hours (ICD-10-PCS; 2024-05-12)
PROC: 5A2204Z Restoration of Cardiac Rhythm, Single (ICD-10-PCS; 2024-05-12)
PROC: 4A023N7 Measurement of Cardiac Sampling and Pressure, Left Heart, Percutaneous Approach (ICD-10-PCS; 2024-05-13)
PROC: B211YZZ Fluoroscopy of Multiple Coronary Arteries using Other Contrast (ICD-10-PCS; 2024-05-13)
PROC: 0B9J8ZX Drainage of Left Lower Lung Lobe, Via Natural or Artificial Opening Endoscopic, Diagnostic (ICD-10-PCS; 2024-05-15)
PROC: 0B9D8ZX Drainage of Right Middle Lung Lobe, Via Natural or Artificial Opening Endoscopic, Diagnostic (ICD-10-PCS; 2024-05-15)
PROC: 02HK3KZ Insertion of Defibrillator Lead into Right Ventricle, Percutaneous Approach (ICD-10-PCS; principal; 2024-05-19)
PROC: 0JH608Z Insertion of Defibrillator Generator into Chest Subcutaneous Tissue and Fascia, Open Approach (ICD-10-PCS; 2024-05-19)
PROC: B517YZZ Fluoroscopy of Left Subclavian Vein using Other Contrast (ICD-10-PCS; 2024-05-19)
PROC: 02HV33Z Insertion of Infusion Device into Superior Vena Cava, Percutaneous Approach (ICD-10-PCS; 2024-05-20)
PROC: B548ZZA Ultrasonography of Superior Vena Cava, Guidance (ICD-10-PCS; 2024-05-20)
PROC: 0B9J8ZX Drainage of Left Lower Lung Lobe, Via Natural or Artificial Opening Endoscopic, Diagnostic (ICD-10-PCS; 2024-05-21)
PROC: 0BJ08ZZ Inspection of Tracheobronchial Tree, Via Natural or Artificial Opening Endoscopic (ICD-10-PCS; 2024-05-23)
DX: A41.9 Sepsis, unspecified organism (principal); E11.10 Type 2 diabetes mellitus with ketoacidosis without coma; J96.01 Acute respiratory failure with hypoxia; I50.31 Acute diastolic (congestive) heart failure; R65.21 Severe sepsis with septic shock; J18.9 Pneumonia, unspecified organism; I46.9 Cardiac arrest, cause unspecified; I47.20 Ventricular tachycardia, unspecified; E87.3 Alkalosis; I42.8 Other cardiomyopathies; K80.20 Calculus of gallbladder without cholecystitis without obstruction; E87.6 Hypokalemia; I25.10 Atherosclerotic heart disease of native coronary artery without angina pectoris; B34.9 Viral infection, unspecified; I44.7 Left bundle-branch block, unspecified; Z79.899 Other long term (current) drug therapy
CPT/HCPCS: 31624; 31645; 33249; 36415; 36556; 36569; 36600; 70450; 71045; 71250; 71260; 74018; 74177; 76604; 76705; 80048; 80053; 80061; 80069; 80202; 80307; 81001; 82010; 82565; 82805; 82962; 83036; 83605; 83690; 83735; 83880; 83930; 84100; 84132; 84443; 84484; 85025; 85610; 85730; 87040; 87070; 87077; 87081; 87086; 87186; 87205; 92960; 93005; 93306; 93458; 94002; 94003; 94640; 96361; 96365; 96366; 96367; 96375; 96376; 99152; 99291; 99292; C9113; G0378; J0171; J0330; J1815; J2248; J2250; J2405; J2470; J2543; J2704; J3480; J7060; Q9967